=== PATIENT | female | born 1985 | race Caucasian/White ===

== ENCOUNTER 2022-12-23 17:56 | Emergency (ER) | payer MEDICAID ==
[~2022-12-23] VITALS: Ht 167.6 cm; Wt 52.3 kg
[~2022-12-23 17:56] MED LIST: NORCO10T PO
[2022-12-23 18:00] VITALS: BP 125/76
== END 2022-12-23 19:48 ==
LOC: ER 17:57
DX: F12.90 Cannabis use, unspecified, uncomplicated; F15.20 Other stimulant dependence, uncomplicated; Z88.0 Allergy status to penicillin; Z91.09 Other allergy status, other than to drugs and biological substances; V49.9XXA Car occupant (driver) (passenger) injured in unspecified traffic accident, initial encounter; Y93.89 Activity, other specified; Y92.89 Other specified places as the place of occurrence of the external cause; Y99.8 Other external cause status
CPT/HCPCS: 99283